=== PATIENT | female | born 1980 | race Caucasian/White ===

== ENCOUNTER 2021-05-10 18:02 | Emergency (ER) | payer OTHER, SELFPAY ==
--- NOTE | 2021-05-10 18:22 | XRR_ITS ---
PROCEDURE INFORMATION: Exam: XR Right Shoulder Exam date and time: 05/10/2021 6:22 PM Age: 41 years old Clinical indication: Pain and injury or trauma; Fall; Blunt trauma (contusions or hematomas); Shoulder; Right; Injury details: Fell on the ice yesterday TECHNIQUE: Imaging protocol: XR Right shoulder. Views: 2 or more views. COMPARISON: No relevant prior studies available. FINDINGS: Bones/joints: Median sternotomy changes with retained fractured wires. The bones are intact and in normal alignment. Vasculature: Aortic endograft or stent. Soft tissues: Normal. XR/XR shoulder RT min 2V* [id number] IMPRESSION: No fracture or acute finding.
[2021-05-10 18:48] VITALS: BP 120/69; PULSE 88; RESP 20; TEMP 37.1; O2SAT 99; BMI 21.6
--- NOTE | 2021-05-10 20:12 | XRR_ITS ---
PROCEDURE INFORMATION: Exam: XR Cervical Spine Exam date and time: 05/10/2021 8:12 PM Age: 41 years old Clinical indication: Pain and injury or trauma; Fall; Blunt trauma; Neck pain; Injury details: Fell on the ice yesterday; Additional info: Fall injury TECHNIQUE: Imaging protocol: XR of the cervical spine. Views: 2 or 3 views. COMPARISON: No relevant prior studies available. FINDINGS: Bones/joints: Sternotomy changes with retained fractured wires. Focal kyphosis at C5-C6. The vertebral body stature is intact. Disc space narrowing with anterior endplate spurring at C6-C7. The facets are intact with mild degenerative changes. Soft tissues: Unremarkable. Dental: The patient is edentulous. XR/XR cervical spine 3V* [id number] IMPRESSION: No fracture or acute finding.
--- NOTE | 2021-05-10 20:12 | W.ED.EXTPRO ---
HPI - Extremity Problem General: Chief complaint: Extremity Injury, Upper Stated complaint: FALL RIGHT SHOULDER INJURY Time Seen by Provider: 05/10/21 20:06 History of Present Illness: HPI Narrative: 41-year-old female slipped and fell last night on the ice. Since then she has had increasing pain and muscle tightness to the right shoulder area. Patient appears well. Patient appears in moderate pain. Patient reports no chronic medical problems. Review of Systems Musc: Reports: neck pain and joint pain (Right shoulder) Physical Exam Const: COMMON NORMALS: average body habitus and alert HENMT: COMMON NORMALS: atraumatic HEAD & SCALP: atraumatic Eye: COMMON NORMALS: Equal, round and reactive pupils present and EOMs intact bilaterally PUPIL: Yes Equal, round and reactive pupils present Neck/C-Spine: CERVICAL SPINE: No Cervical spine tenderness, Yes Paracervical muscle tenderness right and Yes Trapezius muscle tenderness right Resp: COMMON NORMALS: normal respiratory effort and clear to auscultation bilaterally EFFORT & INSPECTION: Yes able to speak in complete sentences AUSCULTATION: clear to auscultation bilaterally Cardio: COMMON NORMALS: regular rate and regular rhythm RATE: regular rate RHYTHM: regular rhythm Back/Pelvis: THORACIC SPINE/UPPER BACK: Yes normal to inspection LUMBAR SPINE/LOWER BACK: Yes normal to inspection Extremity: RIGHT UPPER EXTREMITY: Yes shoulder joint (Normal appearance, muscle tightness in the trapezius, full range of motion) Right shoulder: Yes Right shoulder joint inspection exam, Yes palpation and Yes Right shoulder joint ROM exam Neuro: SENSORIUM/ORIENTATION: Yes alert SPEECH: speech normal GAIT: Yes Normal gait present SENSORY EXAM: Yes extremities Psych: COMMON NORMALS: cooperative Skin: COMMON NORMALS: no rashes or lesions noted GENERAL SKIN EXAM: no rashes or lesions noted Course Vital Signs: Vital signs: Vital Signs Temperature 98.7 F 05/10/21 18:48 Pulse Rate 88 05/10/21 18:48 Respiratory Rate 20 H 05/10/21 18:48 Blood Pressure 120/69 05/10/21 18:48 Pulse Oximetry 99 05/10/21 18:48 MDM - Extremity (Nontraumatic) MDM Narrative: Medical decision making narrative: 41-year-old female comes in for evaluation after a slip and fall last night. On exam patient has some muscle tightness to the right cervical paraspinous muscles, and right trapezius muscles. Patient has normal range of motion of the right shoulder with some mild pain. Patient is alert and oriented. Patient appears well. Patient appears in moderate pain. Vital signs are normal. Differential diagnosis includes muscle strain, fracture, contusion. X-rays were negative for any fracture or dislocations. We will treat patient for muscle strain. Encouraged to follow-up with primary care for persistent symptoms. Patient reported understanding. Patient was written for 7 tablets of hydrocodone 5 mg with acetaminophen 325 mg after review of chart indicated no recent narcotic prescriptions. Patient was medicated in the ER with 30 of Toradol IM, 60 of orphenadrine IM, and 1 hydrocodone 5 mg and acetaminophen 325 mg tablet. Discharge Plan Discharge Patient Disposition: Home Clinical Impression: Muscle spasm of shoulder region Cervical myofascial strain Qualifiers: Encounter type: initial encounter Qualified Code(s): S16.1XXA - Strain of muscle, fascia and tendon at neck level, initial encounter Condition: Stable Prescriptions: New naproxen 500 mg tablet 500 mg PO BID Qty: 20 RF: 0 hydrocodone-acetaminophen 5-325 mg tablet 1 tab PO Q8H PRN (Reason: pain (scale score 7-10)) Qty: 7 RF: 0 Discharge Orders: Discharge ED (Routine); Ordered 05/10/21 Ordered By: Davi Porter Discharge Diet: Usual diet Discharge Activity: Increase activity as tolerated Patient Instructions: Musculoskeletal Pain (ED) Coding Level of Care Code ED Medical Library Assistant for Jemima Rios
[2021-05-10] MEDS: ketorolac 30 mg/mL INJ IM (21:24)
[2021-05-10] MEDS: orphenadrine 30 mg/mL Inj 2 mL 60 MG IM (21:25)
[2021-05-10] MEDS: HYDROcodone-acetaminophen 5-325 mg Tablet 1 TAB PO (21:25)
[2021-05-10 21:45] VITALS: BP 119/71; PULSE 86; RESP 18; TEMP 37; O2SAT 99
== END 2021-05-10 21:45 | disposition home or self-care (01) ==
PROVIDERS: Emergency Provider Nurse Practitioner Family
DX: S16.1XXA Strain of muscle, fascia and tendon at neck level, initial encounter (principal); M62.838 Other muscle spasm; W00.0XXA Fall on same level due to ice and snow, initial encounter
CPT/HCPCS: 72040; 73030; 96372; 99283; J1885; J2360